=== PATIENT | male | born 1935 | race Caucasian/White ===

== ENCOUNTER 2016-05-18 18:59 | Emergency (ER) | payer OTHER, MEDICARE ==
[~2016-05-18] VITALS: Ht 160 cm; Wt 63.5 kg
[~2016-05-18 18:59] MED LIST: ECOTRIN81 MG PO; FISH OIL CONCEN1 SGL PO; GNC NIACIN 250250 MG PO; LOPRESSOR 25MG25 MG PO; LOPRESSOR50 MG PO; LOVAZA1 GM PO; VIBRAMYCIN 100100 MG PO; VITAB121000 PO; VITAMIN C500 M3 PO; VITAMIN D31000 IU PO; [UNRECOGNIZED DRUG - OTHER] PO
--- NOTE | 2016-05-18 21:38 | ED HAND/WRIST INJURY COMPLAINT ---
History of Present Illness General Chief Complaint: Laceration Procedure Stated Complaint: LACERATION TO R INDEX AND MIDDLE FINGER Source: patient Exam Limitations: no limitations Allergies Coded Allergies: NO KNOWN ALLERGIES (09/20/14) Reconcile Medications Ascorbic Acid (Vitamin C) (Unknown Strength) TAB 1 TAB PO DAILY SUPPLEMENT ( Reported) Aspirin (Ecotrin) 81 MG ECT 1 TAB PO DAILY HEART (Reported) Cholecalciferol (Vitamin D3) (Unknown Strength) TAB 1 TAB PO DAILY SUPPLEMENT (Reported) Cyanocobalamin (Vitamin B-12) (Unknown Strength) TABLET 1 TAB PO DAILY SUPPLEMENT (Reported) Doxycycline (Vibramycin 100 MG Cap) 100 MG CAP 100 MG PO BID ? lymes disease Metoprolol Tartrate (Lopressor) 50 MG TAB 50 MG PO BID heart/ afib Niacin (Unknown Strength) TABLET 1 TAB PO DAILY SUPPLEMENT (Reported) OMEGA-3 FATTY ACIDS (Fish Oil Concentrate) 1,000 MG CAPSULE 1-2 SGL PO DAILY SUPPLEMENT (Reported) [id number]-[id number] Ethyl Esters (Lovaza) 1 GRAM CAPSULE 1 CAP PO D [facility] ( Reported) Selenium (Se-100) (Unknown Strength) CAP 1 TAB PO DAILY SUPPLEMENT (Reported) Triage Note: PT TO TRIAGE WITH LAC TO R INDEX FINGER. 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 Triage Nurses Notes Reviewed? yes HPI: Patient is an 80-year-old male presents complaining of laceration to his right second digit and third digit. Patient approximately lacerated his finger on broken glass. Injury occurred approximately 3 hours ago. Patient is right-hand dominant. Pain is 0 out of 10 currently, worsens with palpation. Patient's last tetanus immunization was approximately 2 years ago. Patient denies numbness or decreased range of motion. (DIEGO AVILA) Vital Signs & Intake/Output Vital Signs & Intake/Output Vital Signs Date Time Temp Pulse Resp B/P Pulse O2 O2 Flow FiO2 Ox Delivery Rate 05/18 2208 98.7 70 18 150/82 97 Room Air 05/18 2113 Room Air 05/18 1958 99.7 76 18 181/94 96 Room Air Past History Travel History Traveled to [place] past 21 day No Medical History Any Pertinent Medical History? 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 FATHER (heart disease). Hx Contributory? No (DIEGO AVILA) Review of Systems Review of Systems Constitutional: Denies: chills, fever. Cardiovascular: Denies: chest pain. GI: Denies: abdominal pain. Musculoskeletal: Reports: see HPI. Skin: Reports: see HPI. Neurological/Psychological: Denies: numbness. Hematologic/Endocrine: Reports: bleeding (from wound, resolved). Immunologic/Allergic: Reports: no symptoms. (DIEGO AVILA) Physical Exam Physical Exam General Appearance: well developed/nourished, alert, awake Head: atraumatic, normal appearance Eyes: Bilateral: normal appearance, PERRL, EOMI. Ears, Nose, Throat: hearing grossly normal Neck: normal inspection, full range of motion Cardiovascular/Respiratory: no respiratory distress Hand Left: normal inspection, normal range of motion Hand Right: 1 CM SUPERFICIAL LACERATION OVER THE ULNAR SIDE OF THE SECOND DIGIT OVER THE MIDDLE PHALANX. fULL RANGE OF MOTION. wOUND REMAINS APPROXIMATED WITH FULL FLEXION AND EXTENSION. nO VISIBLE OR PALPABLE FOREIGN BODIES. nO VISIBLE OR FUNCTIONAL TENDON DEFICITS. 0.5 cm laceration over middle phalanx of right middle finger. nontender, wound well approximated Neurologic/Tendon: normal sensation, normal motor functions, normal tendon functions Skin: normal color, warm/dry (DIEGO AVILA) Progress Differential Diagnosis: laceration, foreign body (DIEGO AVILA) Plan of Care: Current Medications Sig/Adithya Start time Last Medication Dose Stop Time Status Admin Tetanus/Diphtheria 0.5 ML ONCE ONE 05/18 2144 CAN Toxoids Adsorbed 05/18 2145 (Decavac) Discussed with Dr. Salcedo. Patient has not taken his blood pressure medication today. Wound cleansed with Betadine, copiously irrigated with sterile water. Wound remains well approximated, Alegre superficial. Sutures deferred. Dermabond and Steri-Strips placed. (DIEGO AVILA) Departure Departure Time of Disposition: 2155 Disposition: HOME OR SELF CARE Condition: Stable Clinical Impression Primary Impression: Finger laceration Qualifiers: Encounter type: initial encounter Qualified Code: S61.219A - Laceration without foreign body of unspecified finger without damage to nail, initial encounter Referrals: ASHLYN CARDOZA MD (PCP/Family) Additional Instructions: Skin glue and steri-strips will flake off on their own. Change the dressing daily. Return to the ER if pus from the wound, redness spreading from the wound , increasing pain, fevers or worsening of symptoms. Departure Forms: Customer Survey General Discharge Information (DIEGO AVILA) PA/MEDICAL SERVICE REPRESENTATIVE Co-Sign Statement Statement: ED Attending supervision documentation- [x] I saw and evaluated the patient. I have also reviewed all the pertinent lab results and diagnostic results. I agree with the findings and the plan of care as documented in the PA's/MEDICAL SERVICE REPRESENTATIVE's documentation. [] I have reviewed the ED Record and agree with the PA's/MEDICAL SERVICE REPRESENTATIVE's documentation. [] Additions or exceptions (if any) to the PAs/MEDICAL SERVICE REPRESENTATIVE's note and plan are summarized below: [] (SERENA FRAIRE,DAVID Singer)
[2016-05-18 22:09] VITALS: BP 150/82
== END 2016-05-18 22:10 ==
LOC: ERH 18:59
DX: S61.210A Laceration without foreign body of right index finger without damage to nail, initial encounter (principal); S61.212A Laceration without foreign body of right middle finger without damage to nail, initial encounter; W25.XXXA Contact with sharp glass, initial encounter
CPT/HCPCS: 90471; 90714